=== PATIENT | male | born 1950 | race Caucasian/White ===

== ENCOUNTER 2018-06-10 09:07 | Inpatient (IN) ==
[2018-06-10] MEDS ORDERED: IOPAMIDOL 100 ML BOTTLE IV ONE (09:08)
--- NOTE | 2018-06-10 09:26 | Cat Scan Report ---
History: New onset slurred speech TECHNIQUE: The brain was imaged without contrast at 2.5 mm intervals. The radiation exposure was limited using dose reduction technology. FINDINGS: No evidence of infarct, hemorrhage, edema or mass effect. There is very mild atrophy involving the frontal and temporal lobes. The ventricles are normal in size. No abnormal extra-axial fluid collection is present. IMPRESSION: Normal exam for patient's age Dr. Bruner was called with the results Interpreted and Authenticated by: Grey Mckeon 06/10/18
[2018-06-10 10:06] LABS: Basophils # (Auto) 0 K/mcL (0.0-0.3); Basophils % (Auto) 0.5 % (0.0-2.0); Eosinophils # (Auto) 0.1 K/mcL (0.0-0.7); Eosinophils % (Auto) 1.4 % (0.0-7.0); Granulocytes % (Auto) 62.5 % (38.0-78.0); Lymphocytes # (Auto) 1.2 K/mcL (1.5-4.8); Lymphocytes % (Auto) 23.9 % (15.5-49.0); Monocytes # (Auto) 0.6 K/mcL (0.1-0.9); Monocytes % (Auto) 11.7 % (1.0-12.0); Platelet Count 181 K/mcL (140-440); RBC 5.24 M/mcL (4.50-5.90); Red Cell Distribution Width 13.3 % (11.5-14.5)
--- NOTE | 2018-06-10 10:16 | Emergency Department Note ---
Neuro HPI - General Chief Complaint: Stroke Symptoms Stated Complaint: Slurred speech Time Seen by Provider: 06/10/18 09:12 Source: patient Mode of arrival: ambulatory Limitations: no limitations - History of Present Illness HPI Narrative: 68-year-old male with slurred speech some mild aphasia perioral numbness and right-sided facial droop started 15 minutes prior to coming in. His girlfriend was with him and noted that he just started to to her out and then his speech got slurred. They were just sitting down talking when it happened. He notes that he last had a migraine headache about 1979 or so but he had similar symptoms with that. Denies any CVA history but he does have significant history of metabolic syndrome. No recent illness but he did have a CTA of the abdomen yesterday here As an outpatient for belly pain with his history of Crohn 's. His girlfriend notes that he had right-sided weakness but this is resolving - Related Data Home Medications: Home Medications Medication Instructions Recorded Confirmed ascorbic acid (vitamin C) PO 08/24/17 04/05/18 aspirin 81 mg tablet 81 mg PO QDAY 08/24/17 04/05/18 glucosamine [id number] PO 08/24/17 04/05/18 multivitamin PO 08/24/17 04/05/18 omega-3 fatty acids-fish oil PO 08/24/17 04/05/18 tamsulosin 0.4 mg capsule 0.4 mg PO QDAY 08/24/17 06/10/18 polyethylene glycol 3350 17 gram 17 g PO QDAY PRN 12/04/17 06/10/18 oral powder packet Previous Rx's Medication Instructions Recorded gabapentin 400 mg capsule 800 mg PO BID #60 cap 04/11/18 insulin degludec (U-200) 200 40 unit SUB-Q QDAY #9 ml 04/11/18 unit/mL (3 mL) subcutaneous pen dapagliflozin 5 mg tablet 5 mg PO QDAY #30 tab 04/14/18 metformin 500 mg tablet 1,000 mg PO BID #120 tab 05/10/18 Allergies/Adverse Reactions: Allergies Allergy/AdvReac Type Severity Reaction Status Date / Time mesalamine [From Pentasa] Allergy Unknown Flu-like Verified 06/10/18 09:08 symptoms olsalazine [From Dipentum] Allergy Unknown Flu-like Verified 06/10/18 09:08 symptoms Sulfa (Sulfonamide Allergy Unknown Rash Verified 06/10/18 09:08 Antibiotics) sulfamethoxazole Allergy Unknown Unknown Verified 06/10/18 09:08 [From Bactrim] trimethoprim [From Bactrim] Allergy Unknown Unknown Verified 06/10/18 09:08 infliximab [From Remicade] AdvReac Intermediate shakey Verified 06/10/18 09:08 Review of Systems All systems ED: reviewed and negative except as stated. Past Medical History - Past Medical History Attestation: Yes: The following information was validated with the patient. [facility] Narrative: Family History (Last Reviewed 04/05/18 @ 08:22 by Ava Brooks DO) Father Arthritis Migraines Sister Leukemia Family/Other Diabetes Mother Hypertension, essential Medical History (Last Reviewed 04/05/18 @ 08:22 by Ava Brooks DO) Hemangioma (Chronic) Elevated PSA (Chronic) Rosacea (Chronic) Allergic rhinitis (Chronic) Hydrocele (Chronic) Fatigue (Chronic) Erectile dysfunction (Chronic) Mitral regurgitation (Chronic) Lymphoma of intra-abdominal lymph nodes (Chronic) Low testosterone (Chronic) Hypogonadism (Chronic) Skin cancer (Chronic) Mallet toe (Chronic) Hammer toe (Chronic) Cavus deformity of foot, acquired (Chronic) Metatarsalgia of right foot (Chronic) Callus of foot (Chronic) Skin fissure (Chronic) Onychomycosis (Chronic) 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) Type 2 diabetes mellitus with hyperglycemia (Chronic) Type 2 diabetes mellitus with other diabetic neurological complication (Chronic) Dystrophia unguium (Chronic) Actinic keratosis (Chronic) Seborrheic keratosis (Chronic) Lentigo (Chronic) BPH (benign prostatic hyperplasia) (Chronic) Diabetic neuropathy (Chronic ~2004) Crohn's disease in remission (Chronic ~1991) Joint pain (Chronic ~2012) DMII (diabetes mellitus, type 2) (Chronic ~1991) Non-Hodgkin lymphoma (Chronic ~08/2006) Past Surgical History (Last Reviewed 04/05/18 @ 08:22 by Ava Brooks DO) H/O colonoscopy (Chronic) History of bowel resection (Chronic) History of knee surgery (Chronic ~2012) History of partial colectomy (Chronic ~2005) History of tonsillectomy and adenoidectomy (Chronic) - Social History smoking status: Never smoker Physical Exam No acute distress resting comfortably. Normocephalic atraumatic. Conjunctive are clear sclerae nonicteric. No nasal discharge or congestion. Oropharynx pink and moist. Neck is supple without lymphadenopathy thyromegaly or carotid bruit. Heart is regular rate and rhythm no murmur appreciated. Lungs are clear to auscultation bilaterally without wheezes rales rhonchi or respiratory distress. Abdomen is soft nontender nondistended. No peritoneal signs or guarding. No pedal edema. +2 radial pulse. Alert oriented able to answer questions appropriately. Cranial nerves II through XII appear normal to me. Strength seems equal symmetrical as lymphedema therapist shoulders and hips. He does have a mild slur at the end of his speech but I do not hear significant aphasia. Memory both short-term and remote appear to be intact. I really do not see any other focal deficits. I concur with nursing assessment NIH of 2 , 1 point for dysarthria 1 point for mild aphasia-however these seem to be improving gradually Limitations: no limitations Course Vital Signs Temperature 97.8 F 06/10/18 09:08 Pulse Rate 86 06/10/18 09:08 Respiratory Rate 16 06/10/18 09:08 Blood Pressure 166/97 06/10/18 09:08 Pulse Oximetry (%) 97 06/10/18 09:08 Temperature 97.8 F 06/10/18 09:08 Pulse Rate 71 06/10/18 13:38 Respiratory Rate 18 06/10/18 13:38 Blood Pressure 132/94 06/10/18 13:38 Pulse Oximetry (%) 98 06/10/18 13:38 Neuro Symptoms/Deficit - Lab Data Lab results reviewed: Yes I reviewed the patient's lab results. Result diagrams: 06/10/18 09:18 06/10/18 09:18 Lab Results 06/10/18 06/10/18 06/10/18 Range/Units 09:18 09:18 09:18 WBC 4.9 (4.5-11.0) K/mcL RBC 5.24 (4.50-5.90) M/mcL Hgb 15.2 (13.5-16.5) g/dL Hct 46.1 (41.0-55.0) % POC Hct 48.0 (41.0-55.0) % MCV 88.0 (80.0-100.0) fL MCH 29.0 (26.0-34.0) pg MCHC 33.0 (31.0-36.0) g/dL RDW 13.3 (11.5-14.5) % Plt Count 181 (140-440) K/mcL MPV 11.9 H (7.4-10.4) fL Gran % 62.5 (38.0-78.0) % Lymph % (Auto) 23.9 (15.5-49.0) % [place] % (Auto) 11.7 (1.0-12.0) % Eos % (Auto) 1.4 (0.0-7.0) % Baso % (Auto) 0.5 (0.0-2.0) % Gran # 3.1 (1.8-8.0) K/mcL Lymph # (Auto) 1.2 L (1.5-4.8) K/mcL [place] # (Auto) 0.6 (0.1-0.9) K/mcL Eos # (Auto) 0.1 (0.0-0.7) K/mcL Baso # (Auto) 0 (0.0-0.3) K/mcL POC PT 12.1 (11.9-14.5) sec POC INR 1.0 (0.9-1.2) APTT 28 (20-37) sec POC Sodium 137 (133-145) mmol/L Sodium 138 (133-145) mmol/L POC Potassium 4.9 (3.3-5.1) mmol/L Potassium 5.1 (3.3-5.1) mmol/L POC Chloride 98 (96-108) mmol/L Chloride 99 (96-108) mmol/L Carbon Dioxide 25 (22-30) mmol/L POC Total CO2 26 (22-30) mmol/L Anion Gap 14.0 (8-16) POC BUN 20 (8-23) mg/dl BUN 17 (8-23) mg/dl Creatinine 1.1 (0.7-1.2) mg/dl POC Creatinine 1.1 (0.7-1.2) mg/dl GFR Calculation 69 Glucose 320 H (70-105) mg/dL POC Glucose 308 H (70-105) mg/dL Calcium 8.7 (8.6-10.4) mg/dl POC WB Ioniz Calcium 1.12 L (1.16-1.32) mmol/L Total Bilirubin 0.4 (0.0-1.0) mg/dL AST 28 (0-37) U/l ALT 30 (0-40) U/l Alkaline Phosphatase 60 (39-117) U/L Troponin T (0-0.03) ng/ml Total Protein 7.0 (5.9-8.4) gm/dL Albumin 4.4 (3.2-5.2) gm/dL Globulin 2.6 (2.2-3.7) gm/dL Albumin/Globulin Ratio 1.7 (1.0-2.3) 06/10/18 Range/Units 09:18 WBC (4.5-11.0) K/mcL RBC (4.50-5.90) M/mcL Hgb (13.5-16.5) g/dL Hct (41.0-55.0) % POC Hct (41.0-55.0) % MCV (80.0-100.0) fL MCH (26.0-34.0) pg MCHC (31.0-36.0) g/dL RDW (11.5-14.5) % Plt Count (140-440) K/mcL MPV (7.4-10.4) fL Gran % (38.0-78.0) % Lymph % (Auto) (15.5-49.0) % [place] % (Auto) (1.0-12.0) % Eos % (Auto) (0.0-7.0) % Baso % (Auto) (0.0-2.0) % Gran # (1.8-8.0) K/mcL Lymph # (Auto) (1.5-4.8) K/mcL [place] # (Auto) (0.1-0.9) K/mcL Eos # (Auto) (0.0-0.7) K/mcL Baso # (Auto) (0.0-0.3) K/mcL POC PT (11.9-14.5) sec POC INR (0.9-1.2) APTT (20-37) sec POC Sodium (133-145) mmol/L Sodium (133-145) mmol/L POC Potassium (3.3-5.1) mmol/L Potassium (3.3-5.1) mmol/L POC Chloride (96-108) mmol/L Chloride (96-108) mmol/L Carbon Dioxide (22-30) mmol/L POC Total CO2 (22-30) mmol/L Anion Gap (8-16) POC BUN (8-23) mg/dl BUN (8-23) mg/dl Creatinine (0.7-1.2) mg/dl POC Creatinine (0.7-1.2) mg/dl GFR Calculation Glucose (70-105) mg/dL POC Glucose (70-105) mg/dL Calcium (8.6-10.4) mg/dl POC WB Ioniz Calcium (1.16-1.32) mmol/L Total Bilirubin (0.0-1.0) mg/dL AST (0-37) U/l ALT (0-40) U/l Alkaline Phosphatase (39-117) U/L Troponin T < 0.01 (0-0.03) ng/ml Total Protein (5.9-8.4) gm/dL Albumin (3.2-5.2) gm/dL Globulin (2.2-3.7) gm/dL Albumin/Globulin Ratio (1.0-2.3) - Radiology Data Radiology results reviewed: Yes I reviewed the patient's radiology results. Initial CT scan of the head without contrast was read as normal for age. CTA of the neck and head were then ordered CTA showed no acute findings. see report MRI of the brain shows tiny lacunar infarct approximately 11 mm - EKG Data EKG attestation: Yes I reviewed and interpreted this EKG. EKG results narrative: Initial EKG showed a rate of 82 with question of left ventricular hypertrophy. Also right bundle branch block seen along with left anterior fascicular block. I do not have an older one here to compare to so we requested old EKG from [facility]. They sent his 3 of them most recent being 07/20/2010. On that it looks like he is got the beginning of the left anterior fascicular block it is difficult to see because of the darkness of the copy but the LVH is clearly new. Is not complaining of chest pain at this time Disposition Pt seen by POST CLOSING SPECIALIST/PA only: No Clinical Impression: Abnormal finding on diagnostic imaging of right kidney, Left anterior fascicular block Type 2 diabetes mellitus with hyperglycemia Qualifiers: Diabetes mellitus termite treater insulin use: with termite treater use Qualified Code(s): E11.65 - Type 2 diabetes mellitus with hyperglycemia Summary: Patient was immediately brought back started on stroke protocol. CT scan of the head without contrast was negative Initial NIH score was 2. ABCD 2 score was 6. CTA was ordered-no acute findings Workup to date was essentially negative except for elevated blood sugar. Given 5 units of insulin. Discussed findings with the patient as well as his CTA from yesterday of the abdomen pelvis. He will need follow-up with urology (for right kidney abnormality), cardiology (for new right bundle branch block and left anterior fascicular block with LVH). Tele-stroke was beamed in, Dr. Moody interviewed and examined the patient. She reviewed his films. After discussion with her, patient was not considered a great candidate for TPA with a current NIH of 1. She recommended urgent MRI which will be done, and monitoring patient until he is out of the TPA window which is around 1:20 PM. After that we will have to make a decision on disposition for monitoring MRI shows tiny lacunar infarct. Discussed with Dr. Moody-she feels that he is not a candidate for intervention at this time as arteries appear to be open and NIH score is low. However he does need workup and observation with telemetry. She thought that if our hospitalist were comfortable with it he can stay here to finish his workup and observation. If not they would arrange for transport to [place] to the stroke center. Dr. Moss, hospitalist, was consulted. He will admit the patient for further evaluation Disposition: Home, Self-Care Condition: Fair Referrals: Ava Brooks, [Primary Care Provider] -
[2018-06-10 10:27] LABS: ALT/SGPT 30 U/l (0-40); Albumin 4.4 gm/dL (3.2-5.2); Albumin/Globulin Ratio 1.7 (1.0-2.3); Alkaline Phosphatase 60 U/L (39-117); Blood Urea Nitrogen 17 mg/dl (8-23)
[2018-06-10] MEDS ORDERED: INSULIN LISPRO 1 UNIT/0.01 ML UNIT SQ ONE ×2 (10:28→11:04)
--- NOTE | 2018-06-10 10:41 | Cat Scan Report ---
History: acute stroke symptoms with slurred speech TECHNIQUE: 80 cc of Isovue-370 was injected intravenously. Arterial phase images were acquired from the aortic arch to the top of the head. Reconstructed views of the head and neck were created separately. Head: The intracranial arterial circulation is normal. The vertebral arteries are nearly symmetric. Basilar artery and posterior fossa circulation are normal. The internal carotids, anterior and middle cerebral arteries are normal in caliber. There is no intracranial stenosis, thrombosis, aneurysm or vascular malformation. The [place] is normal. Anterior communicating artery is patent. There are hypoplastic but patent posterior communicating arteries. NECK: The aortic arch and great vessels arising from the aorta are normal. In the left subclavian artery there is a small calcified plaque located distortion of the left vertebral artery. This is causing approximately 50% stenosis at the origin of the left vertebral. There is no stenosis of the subclavian artery. Beyond the small plaque at the remainder the left vertebral artery is normal. The right subclavian and right vertebral artery are normal without evidence of plaque formation. The innominate, common, internal and external carotid arteries are normal in caliber and there is no plaque formation, dissection or thrombosis. IMPRESSION: Small plaque at the origin of the left vertebral artery causing approximately 50% stenosis. The arterial circulation in the head and neck is otherwise normal. Dr. Bruner was called with the results Interpreted and Authenticated by: Grey Mckeon 06/10/18
[2018-06-10] MEDS ORDERED: LORazepam 2 MG/ML VIAL IV ONE (11:43)
--- NOTE | 2018-06-10 14:09 | Internal Med History&Physical ---
Medical - H&P: HPI Patient information: Note initiated : 06/10/18 at 2:06 pm Service Date, if different from initiated Date: [] Patient: Abner Carbajal a 68 y/o M admitted on for Slurred speech. Chief Complaint: [] History of present illness: Mr. Carbajal is a 68 year old M with h/o DM, h/o lymphoma (s/p treatment) presents to the ER with his girlfriend for evaluation of neurological deficit. The patient was with his girlfriend this AM when while talking to her she realized that he was not paying much attention. She stood in front of him and asked him if he was okay he tried to speak a few words but nothing came out of his mouth. The patient's girlfriend also noticed some facial deviation on the right side. She noticed that and had some gait imbalance. The patient was brought to the emergency room emergently for further evaluation. My understanding is the patient was in the ER within 15-20 minutes. The patient's clinical condition improved after coming to the ED he still had some slurring of the speech but no significant neurological deficit. Some right -sided facial drooping was noted. NIH score was 2, head CT was done which was negative, patient had a CT angiogram which did not show any occlusive lesions. There is some mild to moderate atherosclerotic disease. MRI of the head was done that showed stroke approximately 1.1-1.2 cm in size in the left frontotemporal region. The case was discussed with the stroke neurologist who advised no acute intervention would be necessary. Patient to be monitored and treated. The patient denies any other acute concerns or complaints. The patient is a diabetic, he takes an aspirin is on insulin also takes metformin. He also has a history of Crohn's disease. He had some pain in his abdomen, in the right lower quadrant. His GI physician had ordered a CT abdomen and pelvis that showed a lesion in the right kidney approximately 1-2 cm in size with a very differential diagnosis of renal cell cancer versus infarction versus lymphoma versus pyelonephritis. The patient is being admitted to PCU for further management All systems: reviewed and no additional remarkable complaints except as stated ( As per HPI rest negative) Medical - H&P: PM Medical history: Medical History (Last Reviewed 04/05/18 @ 08:22 by Ava Brooks DO) Hemangioma (Chronic) Elevated PSA (Chronic) Rosacea (Chronic) Allergic rhinitis (Chronic) Hydrocele (Chronic) Fatigue (Chronic) Erectile dysfunction (Chronic) Mitral regurgitation (Chronic) Lymphoma of intra-abdominal lymph nodes (Chronic) Low testosterone (Chronic) Hypogonadism (Chronic) Skin cancer (Chronic) Mallet toe (Chronic) Hammer toe (Chronic) Cavus deformity of foot, acquired (Chronic) Metatarsalgia of right foot (Chronic) Callus of foot (Chronic) Skin fissure (Chronic) Onychomycosis (Chronic) 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) Type 2 diabetes mellitus with hyperglycemia (Chronic) Type 2 diabetes mellitus with other diabetic neurological complication (Chronic) Dystrophia unguium (Chronic) Actinic keratosis (Chronic) Seborrheic keratosis (Chronic) Lentigo (Chronic) BPH (benign prostatic hyperplasia) (Chronic) Diabetic neuropathy (Chronic ~2004) Crohn's disease in remission (Chronic ~1991) Joint pain (Chronic ~2012) DMII (diabetes mellitus, type 2) (Chronic ~1991) Non-Hodgkin lymphoma (Chronic ~08/2006) Surgical history: Past Surgical History (Last Reviewed 04/05/18 @ 08:22 by Ava Brooks DO) H/O colonoscopy (Chronic) History of bowel resection (Chronic) History of knee surgery (Chronic ~2012) History of partial colectomy (Chronic ~2005) History of tonsillectomy and adenoidectomy (Chronic) Pertinent family history: Family History (Last Reviewed 04/05/18 @ 08:22 by Ava Brooks DO) Father Arthritis Migraines Sister Leukemia Family/Other Diabetes Mother Hypertension, essential Medical - H&P: Meds Home Medications Medication Instructions Recorded Confirmed Type ascorbic acid (vitamin C) PO 08/24/17 04/05/18 History aspirin 81 mg tablet 81 mg PO QDAY 08/24/17 04/05/18 History glucosamine [id number] PO 08/24/17 04/05/18 History multivitamin PO 08/24/17 04/05/18 History omega-3 fatty acids-fish oil PO 08/24/17 04/05/18 History tamsulosin 0.4 mg capsule 0.4 mg PO QDAY 08/24/17 06/10/18 History polyethylene glycol 3350 17 gram 17 g PO QDAY PRN 12/04/17 06/10/18 History oral powder packet gabapentin 400 mg capsule 800 mg PO BID #60 cap 04/11/18 06/10/18 Rx insulin degludec (U-200) 200 40 unit SUB-Q QDAY #9 ml 04/11/18 06/10/18 Rx unit/mL (3 mL) subcutaneous pen dapagliflozin 5 mg tablet 5 mg PO QDAY #30 tab 04/14/18 Rx metformin 500 mg tablet 1,000 mg PO BID #120 tab 05/10/18 06/10/18 Rx Allergies Allergy/AdvReac Type Severity Reaction Status Date / Time mesalamine [From Pentasa] Allergy Unknown Flu-like Verified 06/10/18 09:08 symptoms olsalazine [From Dipentum] Allergy Unknown Flu-like Verified 06/10/18 09:08 symptoms Sulfa (Sulfonamide Allergy Unknown Rash Verified 06/10/18 09:08 Antibiotics) sulfamethoxazole Allergy Unknown Unknown Verified 06/10/18 09:08 [From Bactrim] trimethoprim [From Bactrim] Allergy Unknown Unknown Verified 06/10/18 09:08 infliximab [From Remicade] AdvReac Intermediate shakey Verified 06/10/18 09:08 Medical - H&P: Exam - Constitutional Vitals: Temp Pulse Resp BP Pulse Ox 97.8 F 71 18 132/94 98 06/10/18 09:08 06/10/18 13:38 06/10/18 13:38 06/10/18 13:38 06/10/18 13:38 Exam: GENERAL: The patient is a well-developed, well-nourished in no apparent distress. Is alert and oriented x3. VITAL SIGNS: Reviewed and as noted elsewhere. HEENT: Head is normocephalic and atraumatic. Extraocular muscles are intact. Pupils are equal, round, and reactive to light. Nares appeared normal. Mouth appears any without lesions. Mucous membranes are moist. NECK: Normal to inspection, Supple, No lymphadenopathy or thyromegaly. LUNGS: Air entry equal on both sides, no wheezing, crackles or rhonchi noted. No accessory muscles of respiration HEART: Regular rate and rhythm normal, S1 and S2 heard, no Gallop, S3 or Rub Noted, No Gross murmur heard. ABDOMEN: Soft, nontender, and nondistended. Positive bowel sounds. No hepatosplenomegaly was noted. EXTREMITIES: No cyanosis, clubbing, rash, lesions or edema. NEUROLOGIC: Patient is alert oriented x3, he does have dysarthria his speech is slurred but is able to understand me completely. The patient has mild right- sided facial weakness upper motor neuron type. The rest of the cranial nerves are normal. The strength in all 4 extremities is 5 x 5. There is no obvious loss of sensation on either side. Deep tendon reflexes in the biceps in the knee is +1, ankle is absent Babinski sign bilaterally is equally vocal. Patient does have history of diabetic neuropathy PSYCHIATRIC: Normal affect, Normal Mood. Appropriate Behavior. SKIN: No ulceration or wounds noted, No jaundice, No rash noted. Medical - H&P: Reslt - Labs CBC & Chem 7: 06/10/18 09:18 06/10/18 09:18 Labs: Short CBC 06/10/18 Range/Units 09:18 WBC 4.9 (4.5-11.0) K/mcL Hgb 15.2 (13.5-16.5) g/dL Hct 46.1 (41.0-55.0) % Plt Count 181 (140-440) K/mcL BMP 06/10/18 09:18 Sodium 138 Potassium 5.1 Chloride 99 Carbon Dioxide 25 BUN 17 Creatinine 1.1 Glucose 320 H Calcium 8.7 Cardiac Enzymes 06/10/18 Range/Units 09:18 Troponin T < 0.01 (0-0.03) ng/ml Liver Function 06/10/18 Range/Units 09:18 Total Bilirubin 0.4 (0.0-1.0) mg/dL AST 28 (0-37) U/l ALT 30 (0-40) U/l Alkaline Phosphatase 60 (39-117) U/L Albumin 4.4 (3.2-5.2) gm/dL Medical - H&P: A/P - Narrative A/P Narrative: A/P Acute CVA DM, uncontrolled with hyperglycemia Diabetic neuropathy HTN H/o Hodgkins lymphoma Plan Admit to PCU status, Monitor neurological status, neurochecks every 4 hours, allow permissive hypertension for now goal BP for treatment would be systolic of 220 and diastolic of 120. TPA was not administered. Goal glucose values will be less than 140, sliding scale insulin and Lantus for management of hyperglycemia. Bedside speech evaluation by nursing to see if he can swallow safely formal speech therapy occupational therapy and physical therapy evaluation to be done. The patient had a CVA while being on aspirin I will start the patient on Plavix starting tomorrow. EKG of the patient shows sinus rhythm right bundle branch block and left anterior hemifascicular block. The patient will be monitored on telemetry for at least 48 hours to ensure that there is no evidence of atrial fibrillation or atrial flutter. The patient has a history of renal lesion which potentially could be lymphoma infarct pyelonephritis or renal cell cancer based on the differential diagnosis provided by the radiologist. Will check urinalysis. In light of the present clinical presentation it could very well be that the patient has an embolic nature of stroke. Echocardiogram will be ordered. Resume home meds as appropriate DVT prophylaxis SCD Diet-n.p.o. for now will start on diabetic carb controlled cardiac diet once cleared by speech therapy or able to pass swallow eval at bedside Full code Social History - Social History marital status: single occupational status: employed - Tobacco smoking status: Never smoker - Alcohol alcohol intake frequency: holiday/special occasion only - Substance use substance use type: does not use
--- NOTE | 2018-06-10 14:31 | Magnetic Resonance Report ---
CLINICAL INFORMATION: Acute stroke symptoms with slurred speech COMPARISON: Head CT on 06/10/18 TECHNIQUE: Stroke protocol was performed using multiple pulse sequences in multiple projections. FINDINGS: There is an acute nonhemorrhagic infarct in the centrum semiovale in the left frontal lobe. This is located slightly superior and lateral to the body left lateral ventricle and above the sylvian fissure. It measures approximately 1.1 x 1.2 cm in size. It has no mass effect or surrounding edema. No other infarct is present. There is no hemorrhage or evidence of a neoplasm. The ventricles are normal in size. The infarct was not detected on the preceding CT scan. IMPRESSION: Acute 11X12 mm white matter infarct in the posterior aspect of the left frontal lobe Dr. Bruner and Ajay were called with results Interpreted and Authenticated by: Grey Mckeon 06/10/18
[2018-06-10 14:32] LABS: Appearance,Urine CLEAR; Bacteria,Urine 0 /hpf (0); Bilirubin,Urine NEG (NEG); Color,Urine STRAW; Glucose,Urine (UA) >=500 mg/dL (NEG); Leukocyte Esterase,Urine NEG /uL (NEG); Mucus,Urine FEW /hpf (0); Protein,Urine NEG (NEG); Urine Blood NEG mg/dL (<0.03); Urine RBC < 1 /hpf (0-1); Urine Squamous Epithelial Cell 0 /hpf (0-4); Urine WBC < 1 /hpf (0-4); Urobilinogen,Urine NEG (NEG)
[2018-06-10] MEDS ORDERED: DEXTROSE 31 GM ORAL.SUSP PO PRN (14:50)
[2018-06-10] MEDS ORDERED: DEXTROSE 50% 50 ML VIAL IV PRN (14:50)
[2018-06-10] MEDS ORDERED: NALOXONE HCL 0.4 MG/ML VIAL IV PRN (14:50)
[2018-06-10] MEDS ORDERED: ONDANSETRON 4 MG/2 ML VIAL IV PRN (14:50)
[2018-06-10 14:57] LABS: Hemoglobin A1C 7.2 % HGB (4.0-6.0)
[2018-06-10] MEDS: 0.9 % SODIUM CHLORIDE 1,000 ML IV SCH (17:31)
[2018-06-10] MEDS: 0.9 % SODIUM CHLORIDE 10 ML SYRINGE IV SCH ×2 (17:31→20:54)
[2018-06-10] MEDS: INSULIN LISPRO 1 UNIT/0.01 ML UNIT SQ SCH ×2 (17:32→20:53)
[2018-06-10] MEDS: GABAPENTIN 400 MG CAPSULE PO SCH (20:53)
[2018-06-10] MEDS ORDERED: INSULIN GLARGINE, HUMAN 1 UNIT/0.01 ML SQ SCH (21:00)
[2018-06-10] MEDS ORDERED: ATORVASTATIN 20 MG TABLET PO SCH (21:00)
[2018-06-10] MEDS ORDERED: TAMSULOSIN 0.4 MG CAPSULE PO SCH (21:00)
[2018-06-11] MEDS: 0.9 % SODIUM CHLORIDE 1,000 ML IV SCH (05:44)
[2018-06-11] MEDS: 0.9 % SODIUM CHLORIDE 10 ML SYRINGE IV SCH (05:49)
[2018-06-11 06:06] LABS: Basophils # (Auto) 0 K/mcL (0.0-0.3); Basophils % (Auto) 0.5 % (0.0-2.0); Eosinophils # (Auto) 0.2 K/mcL (0.0-0.7); Eosinophils % (Auto) 2.9 % (0.0-7.0); Granulocytes % (Auto) 61.1 % (38.0-78.0); Lymphocytes # (Auto) 1.5 K/mcL (1.5-4.8); Lymphocytes % (Auto) 25.4 % (15.5-49.0); Mean Cell Volume 88.7 fL (80.0-100.0); Mean Corpuscular HGB Conc 32.9 g/dL (31.0-36.0); Mean Corpuscular Hemoglobin 29.2 pg (26.0-34.0); Monocytes # (Auto) 0.6 K/mcL (0.1-0.9); Monocytes % (Auto) 10.1 % (1.0-12.0); Platelet Count 171 K/mcL (140-440); RBC 4.93 M/mcL (4.50-5.90); Red Cell Distribution Width 13.2 % (11.5-14.5)
[2018-06-11 07:50] LABS: ALT/SGPT 22 U/l (0-40); Albumin 3.7 gm/dL (3.2-5.2); Albumin/Globulin Ratio 1.5 (1.0-2.3); Alkaline Phosphatase 45 U/L (39-117); Bilirubin,Direct < 0.2 mg/dL (0.0-0.3); Blood Urea Nitrogen 17 mg/dl (8-23); Gamma Glutamyl Transpeptidase 32 U/L (8-61); Uric Acid 5.2 mg/dL (2.5-8.0)
[2018-06-11] MEDS ORDERED: ACETAMINOPHEN 325 MG TABLET PO PRN (08:31)
[2018-06-11] MEDS: GABAPENTIN 400 MG CAPSULE PO SCH (08:36)
[2018-06-11] MEDS: INSULIN LISPRO 1 UNIT/0.01 ML UNIT SQ SCH (08:37)
[2018-06-11] MEDS ORDERED: CLOPIDOGREL 75 MG TABLET PO SCH (09:00)
[2018-06-11] MEDS ORDERED: TAMSULOSIN 0.4 MG CAPSULE PO SCH (09:00)
--- NOTE | 2018-06-11 12:55 | Discharge Summary ---
Medical - DS: Prov Patient information: Note initiated : 06/11/18 at 12:52 pm Service Date, if different from initiated Date: [] Patient: Abner Carbajal 68 y/o M admitted on 06/10/18 for Slurred speech. Chief Complaint: [] Date of admission: 06/10/18 14:30 Discharge date: 06/11/18 Primary care physician: Ava Brooks DO Consults: 06/10/18 Consult to Physician [CONS] Stat Comment: Consulting Provider: Pilo Moss Reason For Exam: Physician to Consult Medical - DS: Meds - Discharge Medications Prescriptions: Clopidogrel Bisulfate [Plavix] 75 mg PO DAILY #30 tab Rosuvastatin Calcium 40 mg PO DAILY #30 tab Active and Home Medications: Home Medications ascorbic acid (vitamin C) 1,000 mg PO 08/24/17 [History Confirmed 04/05/18 Last Taken 06/09/18 20:00] aspirin 81 mg tablet 81 mg PO QDAY 08/24/17 [History Confirmed 06/10/18 Last Taken 06/10/18 08:00] glucosamine [id number] 1 tab PO DAILY 08/24/17 [History Confirmed Last Taken 06/10/18 08:00] multivitamin 1 tab PO DAILY 08/24/17 [History Confirmed 04/05/18 Last Taken 08:00] omega-3 fatty acids-fish oil 1,000 mg PO DAILY 08/24/17 [History Confirmed 04/05 Last Taken Unknown] tamsulosin 0.4 mg capsule 0.4 mg PO QDAY 08/24/17 [History Confirmed 06/10/18 Last Taken Unknown] polyethylene glycol 3350 17 gram oral powder packet 17 g PO QDAY PRN 12/04/17 [ History Confirmed 06/11/18 Last Taken 06/09/18 20:00] gabapentin 400 mg capsule 800 mg PO BID #60 cap 04/11/18 [Rx Confirmed 06/10/18 Last Taken 06/10/18 08:00] insulin degludec (U-200) 200 unit/mL (3 mL) subcutaneous pen 40 unit SUB-Q QDAY #9 ml 04/11/18 [Rx Confirmed 06/10/18 Last Taken 06/09/18 20:00] dapagliflozin 5 mg tablet 5 mg PO QDAY #30 tab 04/14/18 [Rx Last Taken 06/09/18 08:00] metformin 500 mg tablet 1,000 mg PO BID #120 tab 05/10/18 [Rx Confirmed Last Taken 06/07/18 20:00] Medical - DS: Hosp Hospital course: Mr. Carbajal is a 68 year old M with h/o DM, h/o lymphoma (s/p treatment) presents to the ER with his girlfriend for evaluation of neurological deficit. The patient was with his girlfriend this AM when while talking to her she realized that he was not paying much attention. She stood in front of him and asked him if he was okay he tried to speak a few words but nothing came out of his mouth. The patient's girlfriend also noticed some facial deviation on the right side. She noticed that and had some gait imbalance. The patient was brought to the emergency room emergently for further evaluation. My understanding is the patient was in the ER within 15-20 minutes. The patient's clinical condition improved after coming to the ED he still had some slurring of the speech but no significant neurological deficit. Some right -sided facial drooping was noted. NIH score was 2, head CT was done which was negative, patient had a CT angiogram which did not show any occlusive lesions. There is some mild to moderate atherosclerotic disease. MRI of the head was done that showed stroke approximately 1.1-1.2 cm in size in the left frontotemporal region. The case was discussed with the stroke neurologist who advised no acute intervention would be necessary. Patient to be monitored and treated. The patient denies any other acute concerns or complaints. The patient is a diabetic, he takes an aspirin is on insulin also takes metformin. He also has a history of Crohn's disease. He had some pain in his abdomen, in the right lower quadrant. His GI physician had ordered a CT abdomen and pelvis that showed a lesion in the right kidney approximately 1-2 cm in size with a very differential diagnosis of renal cell cancer versus infarction versus lymphoma versus pyelonephritis. CVA- Left fronto temporal 1.1 cm lesion, pt admitted to the hospital with NIH score of 2, this improved to score of 0 by next morning. The patient had mild dysarthria and right-sided facial which had completely resolved the next day. Overnight there were no events on telemetry. No A. fib noted. Echocardiogram was done which was negative for CHF. CT angiogram showed a small plaque at the origin of left vertebral artery otherwise the rest of the angiogram was negative. The patient has been on aspirin when he had this episode I am switching him from aspirin to Plavix. I am starting him on a high dose of statin Crestor at 40 mg once a day for now. There is lack of significant atherosclerotic disease in this patient, he also has a lesion in the kidney which could potentially be a renal infarct (but could also be lymphoma, renal cell cancer or pyleno ), the urine analysis is negative for any hematuria, I would like this patient to get a 30-day [employer] heart monitor to evaluate for any occult paroxysmal atrial fibrillation that has not been picked up on telemetry or EKG. Patient is willing to undergo this study. His -girlfriend works at [employer] and will try to get the monitor set up on Tuesday. Should he have Afib, it would be prudent to switch his clopidogrel to eliquis or similar drug. The rest of the stay in the hospital is unremarkable, the patient at the time of discharge is asymptomatic, tolerating po well, has no obvious neurological deficits Discharge diagnosis: Acute CVA - Time Spent with Patient Total time spent providing and/or coordinating discharge services: Greater than 30 minutes Medical - DS: Exam - Constitutional Vitals: Vital Signs Temp Pulse Pulse Pulse Pulse Resp BP 06/11/18 12:01 127/82 06/11/18 10:18 131/74 06/11/18 08:01 15 123/79 06/11/18 08:00 97.7 F 17 06/11/18 07:56 16 129/85 06/11/18 06:00 72 70 71 06/11/18 05:27 64 17 06/11/18 05:01 62 15 126/80 06/11/18 04:11 63 15 06/11/18 04:01 98.5 F 62 15 124/78 06/11/18 03:01 72 17 128/84 06/11/18 03:00 65 15 06/11/18 02:25 73 17 06/11/18 02:00 68 14 128/82 06/11/18 01:00 68 15 140/82 06/11/18 00:15 71 06/11/18 00:00 100.0 F H 65 16 124/79 06/10/18 23:00 65 14 132/82 06/10/18 22:00 15 138/82 06/10/18 21:00 16 144/86 06/10/18 20:00 98.8 F 69 15 144/86 06/10/18 19:45 67 06/10/18 19:00 73 15 132/92 06/10/18 18:00 15 142/84 06/10/18 17:05 68 14 06/10/18 17:00 67 14 125/74 06/10/18 16:00 66 12 135/78 06/10/18 15:01 16 136/82 06/10/18 14:45 69 16 146/91 06/10/18 14:31 66 16 132/90 06/10/18 14:01 68 15 129/89 06/10/18 13:38 71 18 132/94 06/10/18 13:31 74 22 132/94 06/10/18 13:01 80 14 141/86 06/10/18 12:55 68 12 BP Pulse Ox 06/11/18 12:01 06/11/18 10:18 06/11/18 08:01 06/11/18 08:00 129/85 98 06/11/18 07:56 06/11/18 06:00 06/11/18 05:27 94 06/11/18 05:01 98 06/11/18 04:11 97 06/11/18 04:01 97 06/11/18 03:01 96 06/11/18 03:00 96 06/11/18 02:25 94 06/11/18 02:00 97 06/11/18 01:00 94 06/11/18 00:15 96 06/11/18 00:00 97 06/10/18 23:00 96 06/10/18 22:00 06/10/18 21:00 06/10/18 20:00 144/86 99 06/10/18 19:45 97 06/10/18 19:00 97 06/10/18 18:00 06/10/18 17:05 96 06/10/18 17:00 97 06/10/18 16:00 95 06/10/18 15:01 06/10/18 14:45 99 06/10/18 14:31 97 06/10/18 14:01 99 06/10/18 13:38 98 06/10/18 13:31 98 06/10/18 13:01 94 06/10/18 12:55 97 Intake and Output 06/10/18 06/11/18 06/11/18 21:59 05:59 13:59 Intake Total 520 / 520 1100 / 1100 960 / 960 Output Total 1100 / 1100 800 / 800 450 / 450 Balance -580 / -580 300 / 300 510 / 510 Intake: IV 1000 / 1000 Sodium Chloride 0.9% 1,000 ml @ 1000 / 1000 84 mls/hr IV .[id number] [facility] Rx#: [id number] Oral 520 / 520 100 / 100 960 / 960 Output: Void Amount 1100 / 1100 800 / 800 450 / 450 Other: Meal Dinner Lunch Percent of Meal Consumed 100% 100% Feeding Ability Independent Urine Appearance Clear Clear Clear Urine Color Bright Yellow Bright Yellow Bright Yellow Urine Odor Strong Normal Weight 211 lb 14.4 oz Additional comments: Constitutional; Afebrile, cooperative, alert, not in distress. Eyes- No icterus, , No periorbital swelling Ears- Ext ear normal, hearing normal to conversation. Neck- Midline trachea, supple Respiratory system: Air Entry equal on both sides, No crackles or wheezing, no rhonchi. CVS- Rate rhythm regular, S1,S2 heard, no gallop, no rub. Abdomen- Soft nontender abdomen, no organomegaly, no tenderness, no guarding or rigidity, [employer]- AOOx3, moving all extremities, no gross focal deficit noted. Medical - DS: Data Labs on day of discharge: Labs from last 24 hours 06/11/18 06/11/18 06/10/18 03:50 03:50 14:20 WBC 6.0 RBC 4.93 Hgb 14.4 Hct 43.7 MCV 88.7 MCH 29.2 MCHC 32.9 RDW 13.2 Plt Count 171 MPV 11.0 H Gran % 61.1 Lymph % (Auto) 25.4 [place] % (Auto) 10.1 Eos % (Auto) 2.9 Baso % (Auto) 0.5 Gran # 3.6 Lymph # (Auto) 1.5 [place] # (Auto) 0.6 Eos # (Auto) 0.2 Baso # (Auto) 0 Sodium 142 Potassium 4.3 Chloride 103 Carbon Dioxide 25 Anion Gap 14.0 BUN 17 Creatinine 1.0 GFR Calculation 78 Glucose 96 Hemoglobin A1c Estim Average Glucose Uric Acid 5.2 Calcium 8.8 Phosphorus 3.7 Magnesium 2.1 Total Bilirubin 0.4 Direct Bilirubin < 0.2 GGT 32 AST 22 ALT 22 Alkaline Phosphatase 45 Lactate Dehydrogenase 196 Total Protein 6.2 Albumin 3.7 Globulin 2.5 Albumin/Globulin Ratio 1.5 Triglycerides 175 H Cholesterol LDL Cholesterol, Calc Non-HDL Cholesterol HDL Cholesterol TSH Urine Color Straw Urine Appearance Clear Urine pH 6.0 Ur Specific [place] 1.020 Urine Protein Neg Urine Glucose (UA) >=500 A Urine Ketones Neg Urine Occult Blood Neg Urine Nitrate Neg Urine Bilirubin Neg Urine Urobilinogen Neg Ur Leukocyte Esterase Neg Urine RBC < 1 Urine WBC < 1 Ur Squamous Epith Cells 0 Urine Bacteria 0 Urine Mucus Few Ur Culture Indicated? No 06/10/18 14:00 WBC RBC Hgb Hct MCV MCH MCHC RDW Plt Count MPV Gran % Lymph % (Auto) [place] % (Auto) Eos % (Auto) Baso % (Auto) Gran # Lymph # (Auto) [place] # (Auto) Eos # (Auto) Baso # (Auto) Sodium Potassium Chloride Carbon Dioxide Anion Gap BUN Creatinine GFR Calculation Glucose Hemoglobin A1c 7.2 H Estim Average Glucose 160 Uric Acid Calcium Phosphorus Magnesium Total Bilirubin Direct Bilirubin GGT AST ALT Alkaline Phosphatase Lactate Dehydrogenase Total Protein Albumin Globulin Albumin/Globulin Ratio Triglycerides 251 H Cholesterol 177 LDL Cholesterol, Calc 85 Non-HDL Cholesterol 135 H HDL Cholesterol 42 TSH 2.87 Urine Color Urine Appearance Urine pH Ur Specific [place] Urine Protein Urine Glucose (UA) Urine Ketones Urine Occult Blood Urine Nitrate Urine Bilirubin Urine Urobilinogen Ur Leukocyte Esterase Urine RBC Urine WBC Ur Squamous Epith Cells Urine Bacteria Urine Mucus Ur Culture Indicated? Medical - DS: A/P - Patient/Caregiver Discharge Instructions Activity: as per physical therapy Diet: Cardiac, Consistent Carbohydrate Additional Instructions: Please stop aspirin, STart on clopidogrel 75mg once daily Please start on crestor 40mg dailyi for atleaset 3 months, you can talk with your provider to cut back the dose after that. Please get a 30 day [employer] heart monitor to evaluate for any atrial fibrillation which was not picked up on this visit. Follow up with your PCP in 1 week, discuss the your Abdomen CT findings with them Prescriptions: Clopidogrel Bisulfate [Plavix] 75 mg PO DAILY #30 tab Rosuvastatin Calcium 40 mg PO DAILY #30 tab - Follow up Plan Follow up with: Ava Brooks DO [Primary Care Provider] - Disposition: Home, Self-Care Prognosis: Fair Rehab Potential: Fair I certify that the patient requires SNF services: No Overall status at discharge: patient is progressing back to baseline Medical - DS: Qual - VTE Deep Vein Thrombosis/Pulmonary Embolism Present on Admission: No
== END 2018-06-11 13:50 | disposition home or self-care (01) | DRG 65 ==
LOC: ED 09:07 → ICU 14:30
PROVIDERS: ADMIT Internal Medicine; ATTEND Internal Medicine
CPT/HCPCS: 80047; 85014; 97161; J1815; J1817; J2060; J7030; Q9967